=== PATIENT | female | born 1965 ===

== ENCOUNTER 2019-10-10 06:18 | Day surgery (SDC) | payer OTHER, SELFPAY ==
[2019-10-07 17:55] VITALS: BMI 19.2
--- NOTE | 2019-10-07 17:59 | SUR.PREOP ---
Patient states that she has had hx of hysteroscopy,polypectomy
[2019-10-10 06:35] VITALS: BP 112/69; PULSE 64; RESP 18; TEMP 36.4; O2SAT 99
[2019-10-10] MEDS: sodium chloride 0.9% 1,000 ML 30 ML IV (06:52)
--- NOTE | 2019-10-10 07:06 | ANES.PREANES ---
Pre-Anesthetic Assessment Pre-Anesthetic Assessment: Height/Weight: Height 1.57 m Weight 47.627 kg Temp Pulse Resp BP Pulse Ox 97.5 F L 64 18 112/69 99 10/10/19 06:35 10/10/19 06:35 10/10/19 06:35 10/10/19 06:35 10/10/19 06:35 Proposed Procedure: Operation Date: 10/10/19 07:40 Proposed Procedures p Vein Stripping(Right) - Joseph Marlow MD Last intake: Intake Last Liquid Date 10/09/19 Last Liquid Time 23:00 Last Solid Date 10/09/19 Last Solid Time 17:00 Social: Social History: No alcohol and No tobacco Exam: Pre-Anes Outpt Exam: alert, oriented x 3, clear to auscultation bilaterally and regular rate & rhythm Airway: Submandibular: WNL Cervical ROM: WNL MP: 2 Dentition: Other (OK) History/ROS: No significant history except as noted Pulmonary: Pulmonary: None reported CV/HEM: CV/HEM: None reported : : None reported Hepatic: Hepatic: None reported GI: GI: None reported Metabolic: Metabolic: None reported Musc/skel: Musc/skel: None reported Neuropsych: Neuropsych: None reported Anesthetic Plan: ASA status: I Anesthesia: Anesthesia Evaluation and General Risk of > 500 ml blood loss (7ml/kg in children): No Meds/Allergies Current Medications: Current Medications Generic Name Dose Route Start Last Admin Trade Name Freq PRN Reason Stop Dose Admin Sodium Chloride 1,000 mls @ 30 ml s/hr 10/10/19 06:15 10/10/19 06:52 Sodium Chloride 0.9% IV 10/11/19 06:14 30 mls/hr .Q24H BASILIA Administration PFSH Anesthesia PFSH: Social History (Updated 10/07/19 @ 17:52 by Ivette Piña) Smoking and tobacco status: never smoked Alcohol intake: never Substance/Drug Use: never Data Anesthesia Cardiac Studies: No Data to Display
[2019-10-10] MEDS: ceFAZolin 1,000 mg SDV 1000 MG IRRIGATION (07:09)
[2019-10-10] MEDS: lidocaine 1% INJ 20 mL IM (07:13)
--- NOTE | 2019-10-10 07:55 | PM.HPUD ---
H&P update H&P Update: DATE OF SURGERY/PROCEDURE: 10/10/19 DATE H&P PERFORMED: 09/01/19 H&P UPDATE INFORMATION: H&P completed within last 30 days PREOP DIAGNOSIS: AVM medial aspect right foot PRIMARY INDICATION FOR PROCEDURE: Painful area around AVM of medial aspect right foot PLANNED PROCEDURE: Operation Date: 10/10/19 07:40 - Joseph Marlow MD AVM resection medial aspect right foot Conscious Sedation: Patient reassessed prior to sedation, with no change noted: Yes PHYSICAL EXAM: alert, oriented x 3, clear to auscultation bilaterally, regular rate & rhythm and operative site marked AIRWAY EVAL/ANESTHESIA PLAN: normal airway ADDITIONAL INFORMATION: IV conscious sedation to be provided by anesthesia department Full H&P Medications/Allergies: Current Medications: Current Medications Generic Name Dose Route Start Last Admin Trade Name Freq PRN Reason Stop Dose Admin Sodium Chloride 1,000 mls @ 30 ml s/hr 10/10/19 06:15 10/10/19 06:52 Sodium Chloride 0.9% IV 10/11/19 06:14 30 mls/hr .Q24H BASILIA Administration Perinent History: Social History: Social History Smoking and tobacco status: never smoked Alcohol intake: never Substance/Drug Use: never
[2019-10-10 08:14] LABS: Hematocrit 40.5 % (37.0-47.0); Hemoglobin 13.1 g/dL (11.5-15.3); Mean Corpuscular HGB Conc 32.3 g/dL (30.0-36.0); Mean Corpuscular Volume 89.8 fL (81-99); Mean Platelet Volume 9.7 fL (7.4-10.4); Platelet Count 337 10^3/cmm (130-400); Red Blood Count 4.51 10^6/uL (4.1-5.3); Red Cell Distribution Width 11.1 % (12.1-15.1); White Blood Count 4.6 10^3/uL (4.0-10.0)
[2019-10-10 08:19] LABS: INR 1.03 (0.8-1.2)
[2019-10-10 08:30] LABS: Anion Gap 14.8 (5-19); Blood Urea Nitrogen 15 mg/dL (6-20); Calcium 10.5 mg/Dl (8.6-10.0); Carbon Dioxide 27 mmol/L (22-29); Chloride 102 mmol/L (98-107); Glucose 117 mg/dL (74-109); Potassium 3.8 mmol/L (3.5-5.1); Sodium 140 mmol/L (136-145)
[2019-10-10 08:52] LABS: Absolute Eosinophils 0.3 10^3/cmm (0.0-0.7); Absolute Segmented Neutrophil 2.5 10/cmm (1.6-7.1); Eosinophils 7 %; Lymphocytes 28 %; Monocytes Absolute 0.4 10^3/cmm (0.1-0.6); Segmented Neutrophils 56 %; Total Cells Counted 100 (0-100)
[2019-10-10 08:53] LABS: Platelet Estimate Normal (Normal)
--- NOTE | 2019-10-10 09:01 | PM.OP ---
Operative Report Date of procedure: 10/10/19 Pre-op Diagnosis: AVM medial aspect right foot Post-op diagnosis: same Procedure Done: Resection of small AVM medial aspect right foot Specimens removed/disposition: AVM right foot sent to pathology Pathology: other Pathology: Overlying skin lesion and underlying AVM Surgeon: Joseph Marlow Anesthesia: MAC (Anesthesia monitored) and Local (6 cc) Estimated blood loss (mL): 5 Complications: None Condition: stable Disposition: same day Brief History: 54-year-old female with a small what appears to be traumatic AVM on the medial aspect of the right foot. This is quite painful with shoe wear. We have recommended resection. Details the risk of procedure were carefully and frankly discussed. Appropriate signs have been reviewed and signed. Procedure: Ms. Zaragoza was taken to the OR suite and carefully positioned. She received IV conscious sedation by Dr. Rollins. Her entire right foot was sterilely prepped and draped. 1% lidocaine was infiltrated around this small AVM on the medial aspect. An elliptical incision was then made along skin lines around this lesion and carried down sharply with a #15 scalpel blade. Sharp dissection was then continued along with blunt dissection with a small hemostat securing this AV malformation inflow area. Lesion was separately excised and the major vasculature was oversewn with 3-0 Vicryl suture. Mild undermining was performed on at the subcutaneous layer. Wound was irrigated with saline. Hemostasis confirmed. The wound was then closed in 2 layers, initially utilizing 3-0 Vicryl suture in interrupted fashion. This was followed by skin closure with interrupted 3-0 nylon suture. Sterile dressings were applied. She was awakened from IV conscious sedation. Vital signs remained stable. She is return to outpatient surgery department in stable condition.
[2019-10-10 09:07] VITALS: BP 100/66; PULSE 53; RESP 16; TEMP 36.3; O2SAT 97
[2019-10-10] MEDS: neomycin-poly-bacitracin oint 28 gm 1 APPLIC TOPICAL (09:22)
[2019-10-10 09:30] VITALS: BP 106/52; PULSE 58; RESP 17; TEMP 36.3; O2SAT 100
[2019-10-10] MEDS: ondansetron 2 mg/ML SDV 2 mL 4 MG IVP ×2 (09:41→10:03)
[2019-10-10 10:06] VITALS: BP 122/65; PULSE 54; RESP 17; TEMP 36.3; O2SAT 100
--- NOTE | 2019-10-24 17:55 | P.HP_ITS ---
Providers/Chief Complaint Primary Care Provider: Cristopher May MD Chief Complaint: Small traumatic AV fistula right foot History of Present Illness This is an history and physical examination performed on the day of the procedure October 10, 2019. Original H&P update did not include the complete report. Darcy Zaragoza is a 54 year old female who I saw originally in my clinic upon consultation from Dr. May for a localized swelling on the medial aspect of her right foot which began about 5 months previously while str iking furniture. This area has slowly increased in size and discomfort. Dr. May was concerned of a localized varicosity and I concur that this most probably is a localized vascular abnormality, probably related to trauma. This certainly may represent a localized AVM. Because of the location and the increased tenderness with walking, I have recommended local excision. She is therefore electively presents on October 10 for planned outpatient resection. Review of Systems Const: Denies: fever, chills, change in appetite, change in weight, fatigue or night sweats Eyes: Denies: change in vision or blurry vision ENMT: Denies: painful swallowing or hoarseness Card: Denies: chest pain, palpitations, irregular heart rhythm or edema Resp: Denies: shortness of breath or productive cough GI: Denies: abdominal pain, nausea, vomiting, difficulty swallowing, heartburn/indigestion or change in bowel habits : Denies: painful urination, urinary frequency, urinary urgency or urinary hesitancy Musc: Denies: extremity pain or extremity swelling Skin/Breast: Denies: rash Neuro: Denies: headache, numbness in extremities, weakness in extremities or changes in sensation Psych: Denies: anxiety, depression or change in appetite Endo: Denies: excessive urination, excessive thirst or cold intolerance [place]/Lymph: Denies: easy bruising, easy bleeding, petechiae or enlarged lymph nodes Medications/Allergies Home Medications Medication Instructions Recorded Confirmed Last Taken Type No Known Home Medications 10/07/19 10/10/19 Unknown History Allergies Allergy/AdvReac Type Severity Reaction Status Date / Time No Known Allergies Allergy Verified 10/10/19 06:33 PFSH Acute PFSH: Statuses (acute, chronic, etc) shown below reflect problem list status as previously entered and may not be historically accurate Medical History (Updated 10/24/19 @ 18:03 by Joseph Marlow MD) 2 para 2 (Acute) Varicose veins of lower extremity (Acute) Surgical History (Updated 10/24/19 @ 18:02 by Joseph Marlow MD) H/O foot surgery (Acute) Status post hysteroscopic polypectomy (Acute) Family History (Updated 10/24/19 @ 18:00 by Joseph Marlow MD) Denies family history of Diabetes CAD (coronary artery disease) Lung disease Cancer Hypertension Stroke Social History Smoking and tobacco status: never smoked Alcohol intake: never Vitals/I&O/Wt Last Vital Signs Temp 97.3 F L 10/10/19 10:06 Pulse 54 L 10/10/19 10:06 Resp 17 10/10/19 10:06 BP 122/65 10/10/19 10:06 Pulse Ox 100 10/10/19 10:06 Physical Exam Const: COMMON NORMALS: oriented x3 and alert ORIENTATION/CONSCIOUSNESS: Yes oriented to person, Yes oriented to place and Yes oriented to time HENMT: COMMON NORMALS: normocephalic HEAD & SCALP: normocephalic; no cranial bruits Neck/C-Spine: COMMON NORMALS: full ROM, supple, no JVD and no carotid bruits GENERAL: Yes trachea midline CERVICAL SPINE: Yes cervical ROM normal Chest: COMMONS NORMALS: inspection of chest normal and palpation of chest normal Resp: COMMON NORMALS: normal respiratory effort, no use of accessory muscles, clear to auscultation bilaterally and percussion normal EFFORT & INSPECTION: Yes able to speak in complete sentences and Yes symmetric chest movement AUSCULTATION: clear to auscultation bilaterally PERCUSSION: percussion normal Cardio: COMMON NORMALS: no JVD, regular rate, regular rhythm, S1 normal heart sound, S2 normal heart sound, no gallops, no murmurs, no rub and peripheral pulses 2+ throughout JUGULAR VENOUS DISTENTION: no JVD RATE: regular rate RHYTHM: regular rhythm HEART SOUNDS: S1 normal and S2 normal PERIPHERAL PULSES: pulses 2+ throughout Extremity: OTHER: 1.5 cm x 1.5 cm area of swelling which is ballotable and nontender on the medial aspect of the right foot. Upon prior handheld Doppler interrogation in my office there was determined to be a light Doppler signal most probably representing traumatic AVM. Neuro: COMMON NORMALS: oriented x3, no focal motor deficits and no sensory deficits noted SENSORIUM/ORIENTATION: Yes alert, Yes oriented to person, Yes oriented to place and Yes oriented to time GAIT: Yes normal gait Psych: COMMON NORMALS: mental status grossly normal MOOD & AFFECT: Yes euthymic mood Data : 10/10/19 06:50 10/10/19 06:50 A&P Assessment and plan (1) Varicose veins of lower extremity: Clinically what appears to represent a traumatic AVM of the medial aspect of the right foot which is slowly enlarging and remains painful. I have recommended localized resection. Rationale for this was carefully discussed. Details the risk of the procedure were reviewed. Appropriate consents have been reviewed and signed. Status: Acute Code(s): I83.90 - Asymptomatic varicose veins of unspecified lower extremity Attestations Medical Necessity Statement*: Enlarging apparent traumatic AVM medial aspect right foot Time Spent in Patient Care: 16 - 35 minutes Coding Level of Care Code Acute Milling Machine Set Up Operator for Amanda Lim Diagnoses Varicose veins of lower extremity I83.90
== END 2019-10-10 10:42 | disposition home or self-care (01) ==
PROVIDERS: Family Provider Family Medicine; PCP Family Medicine; Visit Provider Thoracic Surgery (Cardiothoracic Vascular Surgery)
PROC: (CPT 11422; principal; 2019-10-10 07:40)
DX: I83.91 Asymptomatic varicose veins of right lower extremity (principal); Q27.32 Arteriovenous malformation of vessel of lower limb; Z82.49 Family history of ischemic heart disease and other diseases of the circulatory system; Z83.3 Family history of diabetes mellitus
CPT/HCPCS: 11422; 12041; 12345; 36415; 80048; 85007; 85027; 85610; 88304; 96374; 96375; J0690; J2001; J2250; J2405; J2704; J3010; J7030

== ENCOUNTER 2020-09-06 15:19 | Emergency (ER) | payer OTHER, SELFPAY ==
[2020-09-06 15:21] VITALS: BP 112/76; PULSE 86; RESP 16; TEMP 35.9; O2SAT 98; BMI 19.2
--- NOTE | 2020-09-06 15:36 | W.ED.GENADLT ---
HPI - General Adult General: Chief complaint: Needlestick/Injury/Exposure Stated complaint: NEEDLE STICK FROM COVID ROOM Time Seen by Provider: 09/06/20 15:34 History of Present Illness: HPI narrative: Patient is a 55-year-old female comes to the ED after having a needlestick. Patient says she was cleaning a room and she did not see an open needle that was open on the counter. Her left index finger hit needle and the needle penetrated finger. Needlestick came from a patient who did test positive for COVID-19. Associated symptoms: Deny chest pain, dyspnea, headache(s), nausea, rash, palpitations or vomiting Review of Systems Narrative: Accidental needlestick. Const: Denies: fever(s), chills or fatigue Eyes: Denies: change in vision or eye discomfort ENMT: Denies: throat pain, odynophagia, nasal discharge or nasal congestion Card: Denies: chest pain, palpitations, edema, swelling of feet/ankles, dyspnea on exertion or orthopnea Resp: Denies: dyspnea, productive cough or non-productive cough GI: Denies: abdominal pain, nausea, vomiting, diarrhea, constipation or hematochezia : Denies: flank pain, dysuria or hematuria Musc: Denies: neck pain, back pain or extremity swelling Skin/Breast: Denies: rash or new lesions Neuro: Denies: headache(s), numbness in extremities or weakness in extremities PFS ED PFSH: Medical History 2 para 2 Varicose veins of lower extremity Surgical History H/O foot surgery Status post hysteroscopic polypectomy Family History Denies family history of Diabetes CAD (coronary artery disease) Lung disease Cancer Hypertension Stroke Social History Smoking and tobacco status: never smoked Alcohol intake: never Physical Exam Const: COMMON NORMALS: no acute distress, patient oriented x3, healthy appearing and alert GENERAL APPEARANCE: cooperative and comfortable HENMT: COMMON NORMALS: normocephalic HEAD & SCALP: normocephalic MOUTH: Normal oral and palatal mucosa present THROAT: posterior oropharynx normal and uvula midline Neck/C-Spine: COMMON NORMALS: supple GENERAL: Yes normal visual inspection Resp: COMMON NORMALS: normal respiratory effort, No retractions, No use of accessory muscles and clear to auscultation bilaterally AUSCULTATION: clear to auscultation bilaterally Cardio: COMMON NORMALS: regular rate, regular rhythm, S1 normal heart sound present, S2 normal heart sound present, No gallops present (Cardio), No clicks present (Cardio), No murmurs present (Cardio) and Peripheral pulses 2+ throughout RATE: regular rate RHYTHM: regular rhythm HEART SOUNDS: S1 normal heart sound present and S2 normal heart sound present PERIPHERAL PULSES: Peripheral pulses 2+ throughout GI: COMMON NORMALS: Normal to inspection, nondistended, normoactive bowel sounds present, Soft to palpation, non-tender and no masses PALPATION: Yes Soft to palpation : COMMON NORMALS: Yes no CVA tenderness BLADDER/KIDNEY EXAM: Yes no CVA tenderness Back/Pelvis: COMMON NORMALS: no CVA tenderness Extremity: COMMON NORMALS: normal to inspection Neuro: COMMON NORMALS: patient oriented x3 and moves all extremities SENSORIUM/ORIENTATION: Yes alert Skin: COMMON NORMALS: no rashes or lesions noted NARRATIVE SKIN EXAM: No erythema, warmth or tenderness on left index finger. GENERAL SKIN EXAM: no rashes or lesions noted and dry skin Course Reevaluation(s): Reevaluation #1: Patient had questions about prophylactic treatment for needlestick. I explained to her the treatment course after a needlestick and she decided not to do any prophylactic treatment. Patient says she would rather just recheck labs in a month. Time: 16:03 Vital Signs: Vital signs: Vital Signs Temperature 96.7 F L 09/06/20 15:21 Pulse Rate 86 09/06/20 15:21 Respiratory Rate 16 09/06/20 15:21 Blood Pressure 112/76 09/06/20 15:21 Pulse Oximetry 98 09/06/20 15:21 MDM - General Adult MDM Narrative: Medical decision making narrative: Patient is a 55-year-old female who is an employee here at [employer] [facility] [place] and comes to the ED after accidental needlestick. Needlestick came from the room and was used on a patient who was a 56-year-old male who who tested positive for COVID-19 but had no other known diseases. Patient has no symptoms and area where patient's finger was poked as no signs of any infection. I explained to patient about prophylactic treatment of needlestick or the option of repeating the labs in a month to 2 months. Patient says she would prefer to just repeat labs and not go through prophylactic treatment. HIV and hepatitis labs were performed and are pending. Patient was discharged and told that [facility] [place] will contact with results. She was sent home with a prescription for cephalexin which is prophylactic treatment after puncture wound on hand. Return to ED precautions given. I informed her that she will need to repeat testing in 1 to 2 months. Patient understood and agreed with plan. Lab Data: Attestation: I reviewed the patient's lab results. Labs: Lab Results 09/06/20 09/06/20 09/06/20 Range/Units 16:10 16:10 16:10 WBC 6.3 (4.0-10.0) 10^3/ uL RBC 4.41 (4.1-5.3) 10^6/u L Hgb 13.1 (11.5-15.3) g/dL Hct 40.2 (37.0-47.0) % MCV 91.2 (81-99) fL MCH 29.7 (28.0-34.0) pg MCHC 32.6 (30.0-36.0) g/dL RDW 11.5 L (12.1-15.1) % Plt Count 346 (130-400) 10^3/c mm MPV 8.9 (7.4-10.4) fL Neut % (Auto) 56.1 % Lymph % (Auto) 34.5 % Hartley % (Auto) 5.9 % Eos % (Auto) 2.2 % Baso % (Auto) 1.1 % Neut # (Auto) 3.51 (1.8-7.7) 10^3/u L Lymph # (Auto) 2.2 (0.8-4.8) 10^3/u L Hartley # (Auto) 0.4 (0.2-0.9) 10^3/u L Eos # (Auto) 0.1 (0.0-0.8) 10^3/u L Baso # (Auto) 0.1 (0.0-0.1) 10^3/u L Nucleated RBC % (a uto) 0 % Nucleated RBCs # 0.0 /100WBC Sodium 139 (136-145) mmol/L Potassium 3.9 (3.5-5.1) mmol/L Chloride 105 (98-107) mmol/L Carbon Dioxide 25 (22-29) mmol/L Anion Gap 12.9 (5-19) BUN 11 (6-20) mg/dL Creatinine 0.5 (0.5-0.9) mg/dL GFR Calculation 129.1 (90-130) mL/min Glucose 109 (65-115) mg/dL Calculated Osmolal ity 288 (285-295) mOsm/k g Calcium 9.2 (8.5-10.5) mg/dL Total Bilirubin 0.3 (0.15-1.2) mg/dL AST 17 (0-32) U/L ALT 15 (0-33) U/L Alkaline Phosphata se 70 (35-105) IU/L Total Protein 7.6 (6.6-8.7) g/dL Albumin 4.4 (3.5-5.2) g/dL Globulin 3.2 (1.3-4.6) g/dL Hepatitis A IgM Ab (Nonreactive) Hep Bs Antigen (Nonreactive) Hep Bs Antibody (0-8.5) Hep B Core Total A b (Nonreactive) Hepatitis C Antibo dy (Nonreactive) HIV 1&2 Ab & HIV 1 Ag Non-reactive (Non-Reactiv) HIV 1&2 Antibody Non-reactive (Non-Reactiv) 09/06/20 Range/Units 16:10 WBC (4.0-10.0) 10^3/ uL RBC (4.1-5.3) 10^6/u L Hgb (11.5-15.3) g/dL Hct (37.0-47.0) % MCV (81-99) fL MCH (28.0-34.0) pg MCHC (30.0-36.0) g/dL RDW (12.1-15.1) % Plt Count (130-400) 10^3/c mm MPV (7.4-10.4) fL Neut % (Auto) % Lymph % (Auto) % Hartley % (Auto) % Eos % (Auto) % Baso % (Auto) % Neut # (Auto) (1.8-7.7) 10^3/u L Lymph # (Auto) (0.8-4.8) 10^3/u L Hartley # (Auto) (0.2-0.9) 10^3/u L Eos # (Auto) (0.0-0.8) 10^3/u L Baso # (Auto) (0.0-0.1) 10^3/u L Nucleated RBC % (a uto) % Nucleated RBCs # /100WBC Sodium (136-145) mmol/L Potassium (3.5-5.1) mmol/L Chloride (98-107) mmol/L Carbon Dioxide (22-29) mmol/L Anion Gap (5-19) BUN (6-20) mg/dL Creatinine (0.5-0.9) mg/dL GFR Calculation (90-130) mL/min Glucose (65-115) mg/dL Calculated Osmolal ity (285-295) mOsm/k g Calcium (8.5-10.5) mg/dL Total Bilirubin (0.15-1.2) mg/dL AST (0-32) U/L ALT (0-33) U/L Alkaline Phosphata se (35-105) IU/L Total Protein (6.6-8.7) g/dL Albumin (3.5-5.2) g/dL Globulin (1.3-4.6) g/dL Hepatitis A IgM Ab Non-reactive (Nonreactive) Hep Bs Antigen Non-reactive (Nonreactive) Hep Bs Antibody 1877.0 H (0-8.5) Hep B Core Total A b Non-reactive (Nonreactive) Hepatitis C Antibo dy Non-reactive (Nonreactive) HIV 1&2 Ab & HIV 1 Ag (Non-Reactiv) HIV 1&2 Antibody (Non-Reactiv) Discharge Plan Discharge Patient Disposition: Home Clinical Impression: Needle stick injury of finger Condition: Stable Prescriptions: New cephalexin 500 mg capsule 500 mg PO Q6H 3 Days Qty: 12 RF: 0 No Action No Known Home Medications RF: 0 Discharge Orders: Discharge ED (Routine); Ordered 09/06/20 Ordered By: Cristopher Jeronimo Referrals: Cristopher May MD [Primary Care Provider] - Patient Instructions: Blood/Body Fluid Exposure - Occupational, Needle Stick Injuries (ED) Activity Restrictions/Additional Instructions: Follow-up with medical provider as directed. Follow-up to get repeat labs in 1 to 2 months. Take medications as prescribed. Return to the ER or your medical provider if condition worsens. Please read and understand discharge instructions. If any questions, please ask. Coding Level of Care Code ED Emergency Department Manager for Dutchg Fwd Exam Comprehensive
[2020-09-06 16:23] LABS: Basophils # 0.1 10^3/uL (0.0-0.1); Basophils % 1.1 %; Eosinophils # 0.1 10^3/uL (0.0-0.8); Eosinophils % 2.2 %; Hematocrit 40.2 % (37.0-47.0); Hemoglobin 13.1 g/dL (11.5-15.3); Lymphocytes # 2.2 10^3/uL (0.8-4.8); Lymphocytes % 34.5 %; Mean Corpuscular HGB Conc 32.6 g/dL (30.0-36.0); Mean Corpuscular Hemoglobin 29.7 pg (28.0-34.0); Mean Corpuscular Volume 91.2 fL (81-99); Mean Platelet Volume 8.9 fL (7.4-10.4); Monocytes # 0.4 10^3/uL (0.2-0.9); Monocytes % 5.9 %; Neutrophils # 3.51 10^3/uL (1.8-7.7); Neutrophils % 56.1 %; Nucleated Red Blood Cells % 0 %; Platelet Count 346 10^3/cmm (130-400); Red Blood Count 4.41 10^6/uL (4.1-5.3); Red Cell Distribution Width 11.5 % (12.1-15.1); White Blood Count 6.3 10^3/uL (4.0-10.0)
[2020-09-06 17:01] LABS: Alanine Aminotransferase 15 U/L (0-33); Albumin Level 4.4 g/dL (3.5-5.2); Alkaline Phosphatase 70 IU/L (35-105); Anion Gap 12.9 (5-19); Aspartate Amino Transferase 17 U/L (0-32); Blood Urea Nitrogen 11 mg/dL (6-20); Calcium 9.2 mg/dL (8.5-10.5); Carbon Dioxide 25 mmol/L (22-29); Chloride 105 mmol/L (98-107); Globulin 3.2 g/dL (1.3-4.6); Glomerular Filtration Rate 129.1 mL/min (90-130); Glucose 109 mg/dL (65-115); Osmolality Calculated 288 mOsm/kg (285-295); Potassium 3.9 mmol/L (3.5-5.1); Sodium 139 mmol/L (136-145); Total Bilirubin 0.3 mg/dL (0.15-1.2); Total Protein 7.6 g/dL (6.6-8.7)
[2020-09-06 17:27] LABS: HIV 1 & 2 Antibody Non-Reactive (Non-Reactiv); HIV 1 & 2 Antigen Non-Reactive (Non-Reactiv)
[2020-09-06 17:46] LABS: Hepatitis A Antibody IgM Non-Reactive (Nonreactive); Hepatitis B Core AB, Total Non-Reactive (Nonreactive); Hepatitis B Surface Antigen Non-Reactive (Nonreactive); Hepatitis C Virus Antibody Non-Reactive (Nonreactive)
== END 2020-09-06 16:19 | disposition home or self-care (01) ==
PROVIDERS: Emergency Provider Physician Assistant; PCP Family Medicine
DX: S61.231A Puncture wound without foreign body of left index finger without damage to nail, initial encounter (principal); W46.0XXA Contact with hypodermic needle, initial encounter
CPT/HCPCS: 12345; 80053; 85025; 86705; 86706; 86709; 86803; 87340; 87806; 99281; 99282

== ENCOUNTER → 2023-04-07 08:57 | Outpatient (BNVA) | payer OTHER, SELFPAY | PROVIDERS: Visit Provider Family Medicine | DX: Z01.419 Encounter for gynecological examination (general) (routine) without abnormal findings (principal); Z13.6 Encounter for screening for cardiovascular disorders | CPT/HCPCS: 80053; 80061; 85025; 87624 ==

== ENCOUNTER 2023-04-29 15:04 | Outpatient (CLI) | payer OTHER, SELFPAY ==
--- NOTE | 2023-04-29 15:12 | MM_ITS ---
WS: [id number] BILATERAL 3D TOMOSYNTHESIS DIGITAL SCREENING MAMMOGRAPHY WITH CAD CLINICAL INFORMATION: screening mammogram HISTORY: Screening mammogram. No current complaints. COMPARISON: 2019 TECHNIQUE: Bilateral CC and MLO views. FINDINGS: The breasts are composed of heterogeneous fibroglandular density tissue, which can limit the detectio n of small underlying mass lesions. No suspicious mass, asymmetry, calcifications, or architectural d istortion. No evidence of malignancy. Lucent centered calcification left breast. IMPRESSION: MM/[place] [id number] BI-RADS: 2-Benign FOLLOW UP: 1 Year Follow-up Recommend return to annual screening mammography.
== END 2023-04-29 15:05 | disposition home or self-care (01) ==
LOC: RAD 15:11 → MOBLMAM 15:12
PROVIDERS: PCP Family Medicine; Visit Provider Family Medicine
DX: Z12.31 Encounter for screening mammogram for malignant neoplasm of breast (principal)
CPT/HCPCS: 77063; 77067

== ENCOUNTER → 2023-05-04 15:26 | Outpatient (BNVA) | payer OTHER, SELFPAY | PROVIDERS: PCP Family Medicine; Visit Provider Family Medicine | DX: Z01.419 Encounter for gynecological examination (general) (routine) without abnormal findings (principal) | CPT/HCPCS: 87624 ==

== ENCOUNTER 2023-07-08 05:53 | Day surgery (SDC) | payer OTHER, SELFPAY ==
[2023-07-08 06:06] VITALS: BP 114/76; PULSE 83; RESP 16; TEMP 36.3; O2SAT 99; BMI 19.2
[2023-07-08] MEDS: sodium chloride 0.9% 1,000 ML 30 ML IV (06:21)
--- NOTE | 2023-07-08 06:43 | ANES.PREANE2 ---
Pre-Anesthetic Assessment Height/Weight: Height 1.57 m Weight 47.627 kg Temp Pulse Resp BP Pulse Ox O2 Del Method 97.4 F L 83 16 114/76 99 Room Air 07/08/23 06:06 07/08/23 06:06 07/08/23 06:06 07/08/23 06:06 07/08/23 06:06 07/08/23 06:06 Preop Diagnosis: screening Operation Date: 07/08/23 07:00 Proposed Procedures p Colonoscopy 47954,Z12.11(Not Applicable) - Chris Myrick DO Familial anesthetic complications: None Was Beta Ninfa taken within 24 hours: N/A Was Clonidine taken within 24 hours: N/A Last intake: Intake Last Liquid Date 07/07/23 Last Liquid Time 18:00 Last Solid Date 07/06/23 Social No alcohol and No tobacco Exam alert, oriented x 3 and regular rate & rhythm Airway Submandibular: within normal limits Cervical ROM: within normal limits Mallampati: Class I Dentition: full History/ROS No significant history except as noted Pulmonary None reported CV/HEM None reported None reported Hepatic None reported GI None reported Metabolic None reported Musc/skel None reported Neuropsych None reported Anesthetic Plan ASA status: 1 Anesthesia: MAC Risk of > 500 ml blood loss (7ml/kg in children): No Medications/Allergies Home Medications Medication Instructions Recorded Confirmed Last Taken Type No Known Home Medications 10/07/19 07/08/23 Unknown History Allergies Allergy/AdvReac Type Severity Reaction Status Date / Time No Known Allergies Allergy Verified 07/08/23 06:02 Current Medications Generic Name Dose Route Start Last Admin Trade Name Jacksonq PRN Reason Stop Dose Admin Sodium Chloride 1,000 mls @ 30 mls/hr 07/08/23 06:00 07/08/23 06:21 Sodium Chloride 0.9% IV 07/09/23 05:59 30 mls/hr .Q24H BASILIA Administration PFSH Anesthesia Medical History 2 para 2 Varicose veins of lower extremity Surgical History H/O foot surgery Status post hysteroscopic polypectomy 18 years ago Family History Denies family history of Diabetes CAD (coronary artery disease) Lung disease Cancer Hypertension Stroke Social History Smoking and tobacco/nicotine status: never used tobacco/nicotine Alcohol intake: never Substance/Drug Use: never Female Reproductive History Date of last menstrual period: 07/05/23 Data Anesthesia Cardiac Studies: No Data to Display
--- NOTE | 2023-07-08 07:00 | PM.HP ---
Providers/Chief Complaint Primary Care Provider: Emma Tyson DO Chief Complaint: Z12.11 History of Present Illness Darcy Zaragoza is a 58 year old female Review of Systems General: Reports: 10 or more systems reviewed and unremarkable except in HPI and below Medications/Allergies Home Medications Medication Instructions Recorded Confirmed Last Taken Type No Known Home Medications 10/07/19 07/08/23 Unknown History Allergies Allergy/AdvReac Type Severity Reaction Status Date / Time No Known Allergies Allergy Verified 07/08/23 06:02 PFSH Acute PFSH: Medical History 2 para 2 Varicose veins of lower extremity Surgical History H/O foot surgery Status post hysteroscopic polypectomy 18 years ago Family History Denies family history of Diabetes CAD (coronary artery disease) Lung disease Cancer Hypertension Stroke Social History Smoking and tobacco/nicotine status: never used tobacco/nicotine Alcohol intake: never Substance/Drug Use: never Female Reproductive History: Date of last menstrual period: 07/05/23 Vitals/I&O/Wt Last Vital Signs Temp 97.4 F L 07/08/23 06:06 Pulse 83 07/08/23 06:06 Resp 16 07/08/23 06:06 BP 114/76 07/08/23 06:06 Pulse Ox 99 07/08/23 06:06 O2 Del Method Room Air 07/08/23 06:06 Weight last 48 hrs Weight 105 lb A&P Assessment and plan (1) Encounter for screening colonoscopy: Plan Screening colonoscopy The risks and benefits of the procedure, including bleeding, infection, intestinal perforation requiring surgery, missed lesion were explained to the patient. The patient is understanding of the risks and wishes to proceed. Attestations Medical Necessity Statement*: Home Coding Level of Care Code Acute Code for Chg Fwd Diagnoses Encounter for screening colonoscopy Z12.11
[2023-07-08 07:04] LABS: OR HCG Qualitative Urine Negative (Negative)
[2023-07-08 07:16] VITALS: BP 123/79; PULSE 71; RESP 16; TEMP 36.1; O2SAT 96
[2023-07-08 07:25] VITALS: BP 123/79; PULSE 66; RESP 14; TEMP 36.1; O2SAT 100
== END 2023-07-08 07:57 | disposition home or self-care (01) ==
PROVIDERS: Anesthesiology; PCP Family Medicine; Visit Provider Surgery
PROC: 0DJD8ZZ Inspection of Lower Intestinal Tract, Via Natural or Artificial Opening Endoscopic (ICD-10-PCS; CPT 45378; principal; 2023-07-08 07:00)
DX: Z12.11 Encounter for screening for malignant neoplasm of colon (principal)
CPT/HCPCS: 45378; 81025; 84703; J2704; J7030